=== PATIENT | male | born 1940 | race Caucasian/White ===

== ENCOUNTER 2017-11-13 08:49 | Emergency (ER) | payer OTHER ==
[~2017-11-13] VITALS: Ht 182.9 cm; Wt 108.9 kg
[2017-11-13 08:49] VITALS: BP_SYST 126
[2017-11-13] MEDS ORDERED: BACITRACIN 1 GM OINT TP ONE (09:15)
[2017-11-13 09:22] VITALS: BP_SYST 133
== END 2017-11-13 09:22 | disposition home or self-care (01) ==
LOC: SED 08:49
DX: S09.90XA Unspecified injury of head, initial encounter (principal); Z88.5 Allergy status to narcotic agent; W06.XXXA Fall from bed, initial encounter; Y93.89 Activity, other specified; Y92.89 Other specified places as the place of occurrence of the external cause; Y99.8 Other external cause status
CPT/HCPCS: 99282

== ENCOUNTER 2021-01-16 14:01 | Emergency (ER) | payer OTHER ==
[~2021-01-16] VITALS: Ht 182.9 cm; Wt 106.6 kg
[2021-01-16 14:10] VITALS: BP_SYST 146
[2021-01-16 16:03] LABS: BILIRUBIN,URINE NEGATIVE (NEGATIVE); BLOOD, URINE NEGATIVE (NEGATIVE); COLOR,URINE YELLOW (YELLOW); GLUCOSE,URINE 2+ (NEGATIVE); KETONES,URINE NEGATIVE (NEGATIVE); LEUKOCYTE ESTERASE ,URINE TRACE (NEGATIVE); NITRITE, URINE POSITIVE (NEGATIVE); PROTEIN URINE NEGATIVE (NEGATIVE); UROBILINOGEN,URINE 0.2 (0.2-1.0)
[2021-01-16 16:07] LABS: CLARITY/URINE HAZY (CLEAR)
[2021-01-16 16:19] LABS: BACTERIA,URINE MODERATE /HPF (None Seen); MUCUS,URINE None Seen /LPF (None Seen); RBC,URINE NONE SEEN /HPF (0-3); WBC,URINE 20-50 /HPF (0-3)
[2021-01-16] MEDS ORDERED: LIDOCAINE 2%, 20 ML MDV INJ ONE (17:15)
[2021-01-16] MEDS ORDERED: CEPH-548 PO (18:36)
[2021-01-16] MEDS ORDERED: BACI15OI13 TP (18:38)
[2021-01-16] MEDS ORDERED: cephALEXin 500 MG CAPSULE ONE (18:57)
[2021-01-16 19:00] VITALS: BP_SYST 146
[2021-01-16] MEDS ORDERED: cephALEXin 500 MG CAPSULE PO ONE (19:00)
[2021-01-16] MEDS ORDERED: CEPHALEXIN 125 MG/5 ML, 100 ML BTL PO ONE (19:00)
== END 2021-01-16 19:00 | disposition home or self-care (01) ==
LOC: SED 14:01
DX: N49.2 Inflammatory disorders of scrotum (principal); N39.0 Urinary tract infection, site not specified; E11.9 Type 2 diabetes mellitus without complications; Z88.5 Allergy status to narcotic agent; Z79.899 Other long term (current) drug therapy
CPT/HCPCS: 55100; 76870; 81000; 82962; 87086; 99284; J2001